=== PATIENT | male | born 1935 | race Caucasian/White ===

== ENCOUNTER → 2020-07-15 | Outpatient (CLI) | payer MEDICARE ==
--- NOTE | 2020-07-15 09:47 | REP ---
INDICATION: LEFT HIP PAIN. COMPARISON: None TECHNIQUE: Two views FINDINGS: There is moderate asymmetric hip joint space narrowing with mild buttressing. There is no acute fracture, dislocation, or subluxation. IMPRESSION: Chronic changes <Electronically signed by You Carroll > 07/15/20 [id number]
== END ==
LOC: M RAD 08:21
PROVIDERS: ATTEND Physician Assistant
DX: M25.552 Pain in left hip (principal)

== ENCOUNTER 2020-08-15 18:08 | Inpatient (IN) | payer MEDICARE ==
[~2020-08-15] VITALS: Ht 165.1 cm; Wt 84.0 kg
[2020-08-15] MEDS ORDERED: ISOVUE-370 76% 100ML VIAL As Ordered ONE (18:29)
--- NOTE | 2020-08-15 18:41 | REP ---
INDICATION: CVA. COMPARISON: No comparison chest x-ray. TECHNIQUE: Portable upright AP chest radiograph. FINDINGS: EKG electrodes are seen. The lungs are exposed at a relatively low level of inspiration. The heart appears enlarged. Aorta is tortuous. Pulmonary vasculature is cephalized. There is linear platelike atelectasis in the left base. Slight blunting of the left lateral pleural angle is suspected. No definite infiltrate. Old healed rib fractures noted on the right.. IMPRESSION: Slight blunting of the left lateral pleural angle suspected. Platelike atelectasis left base. Cardiomegaly. Relatively low level of overall inspiration.. <Electronically signed by Armando Schmid > 08/15/20 [id number]
[2020-08-15 18:45] LABS: BASO # 0.1 10^3/uL (0.0-0.2); BASO % 0.7 % (0.0-1.0); EOS # 0.4 10^3/uL (0.0-0.5); EOS % 4.3 % (0.0-3.0); HEMATOCRIT 45.3 % (42.0-52.0); HEMOGLOBIN 16.1 g/dl (13.5-17.5); LYMPH # 2.8 10^3/uL (1.5-5.0); LYMPH % 34.2 % (24.0-44.0); MEAN CORPUSCULAR HEMOGLOBIN 34.9 pg (27.0-33.0); MEAN CORPUSCULAR HGB CONC 35.5 g/dl (32.0-36.5); MEAN CORPUSCULAR VOLUME 98.3 fl (80.0-96.0); MONO % 11.4 % (2.0-8.0); NEUTROPHILS # 4.1 10^3/uL (1.5-8.5); NEUTROPHILS % 49.2 % (36.0-66.0); PLATELET COUNT, AUTOMATED 191 10^3/uL (150-450); RED BLOOD COUNT 4.61 10^6/uL (4.30-6.10); WHITE BLOOD COUNT 8.3 10^3/uL (4.0-10.0)
--- NOTE | 2020-08-15 19:00 | REPVR ---
PROCEDURE INFORMATION: Exam: CT Head Without Contrast Exam date and time: 08/15/2020 6:22 PM Age: 84 years old Clinical indication: Altered mental status/memory loss; Additional info: CVA - nursing interventions must not delay CT TECHNIQUE: Imaging protocol: Computed tomography of the head without contrast. Radiation optimization: All CT scans at this facility use at least one of these dose optimization techniques: automated exposure control; mA and/or kV adjustment per patient size (includes targeted exams where dose is matched to clinical indication); or iterative reconstruction. Other technique: STROKE PROTOCOL was implemented. COMPARISON: No relevant prior studies available. FINDINGS: Brain: No intracranial mass, focal mass effect or midline shift. No acute intracranial hemorrhage. Mild decreased attenuation in periventricular/centrum semiovale white matter. No focal effacement of cortical sulci to indicate acute cortical infarct. Prominent ventricles and CSF spaces suggest parenchymal volume loss. Paranasal sinuses: Visualized paranasal sinuses are unremarkable. Mastoid air cells: Mastoid air cells are normally aerated. Orbital cavity: Visualized globes and orbits are unremarkable. Bones/joints: No calvarial fracture or destructive process. Soft tissues: No focal extracranial soft tissue swelling. IMPRESSION: 1. No acute intracranial abnormality. 2. Atrophy and chronic microangiopathic change in supratentorial white matter. ASSESSMENT: ASPECTS ([place] Stroke Program Early CT Score) is 10. Electronically signed by: Serafin Muñoz On 08/15/2020 19:00:12 PM
[2020-08-15 19:01] LABS: INR 0.92; PROTHROMBIN TIME 12.6 SECONDS (12.5-14.3)
[2020-08-15 19:02] LABS: PARTIAL THROMBOPLASTIN TIME 27.2 SECONDS (24.2-38.5)
--- NOTE | 2020-08-15 19:08 | REPVR ---
PROCEDURE INFORMATION: Exam: CT Angiography Neck With Contrast Exam date and time: 08/15/2020 6:22 PM Age: 84 years old Clinical indication: Memory loss; Additional info: CVA - nursing interventions must not delay CT TECHNIQUE: Imaging protocol: Computed tomography angiography of the neck with contrast. 3D rendering (Not supervised by radiologist): MIP and/or 3D reconstructed images were created by the technologist. Radiation optimization: All CT scans at this facility use at least one of these dose optimization techniques: automated exposure control; mA and/or kV adjustment per patient size (includes targeted exams where dose is matched to clinical indication); or iterative reconstruction. Contrast material: ISOVUE 370; Contrast volume: 100 ml; Contrast route: INTRAVENOUS (IV); COMPARISON: SD PORTABLE CHEST X-RAY 08/15/2020 6:26 PM FINDINGS: Right common carotid, cervical ICA and proximal ECA demonstrate contrast opacification with no occlusion, flow limiting stenosis, or intimal flap to suggest dissection. Very mild right carotid bulb calcified atherosclerotic plaque with certainly milder than 50% luminal caliber stenosis Left common carotid, cervical ICA and proximal ECA demonstrate contrast opacification, with no occlusion, flow limiting stenosis, or intimal flap to suggest dissection. Mild left carotid bulb and proximal left ICA mixed composition plaque with certainly milder than 50% luminal caliber narrowing, over the short affected segment. Vertebral arteries demonstrate normal course to the level of the skull base and show no occlusion, flow limiting stenosis or dissection. No flow limiting stenosis or anomaly of the great vessel origins. No concerning asymmetric neck soft tissue abnormality. Multi-level cervical degenerative disc and articular pillar arthropathy is present. IMPRESSION: Bilateral carotid bulb and proximal ICA plaque with certainly milder than 50% short-segment luminal caliber stenosis bilaterally. No high-grade stenotic lesion. REFERENCES: NASCET CRITERIA. The degree of internal carotid artery stenosis is based on NASCET criteria. Normal is no stenosis. Mild is less than 50% stenosis. Moderate is 50-69% stenosis. Severe is 70% to 99% stenosis. Total occlusion is no detectable patent lumen. Electronically signed by: Serafin Muñoz On 08/15/2020 19:08:31 PM
--- NOTE | 2020-08-15 19:10 | REPVR ---
PROCEDURE INFORMATION: Exam: CT Angiography Head With Contrast, Arteriography Exam date and time: 08/15/2020 6:22 PM Age: 84 years old Clinical indication: Memory loss; Additional info: CVA - nursing interventions must not delay CT TECHNIQUE: Imaging protocol: Computed tomography angiography of the head with contrast. Exam focused on the arteries. 3D rendering (Not supervised by radiologist): MIP and/or 3D reconstructed images were created by the technologist. Radiation optimization: All CT scans at this facility use at least one of these dose optimization techniques: automated exposure control; mA and/or kV adjustment per patient size (includes targeted exams where dose is matched to clinical indication); or iterative reconstruction. Contrast material: ISOVUE 370; Contrast volume: 100 ml; Contrast route: INTRAVENOUS (IV); COMPARISON: No relevant prior studies available. FINDINGS: Ventricles, cisterns and sulci are symmetric and appropriate for age. No intracranial mass or focal mass effect. No intracranial hemorrhage, midline shift or acute territorial infarct. Mild decreased attenuation in periventricular/centrum semiovale white matter. Anterior circulation: Normal contrast opacification and luminal caliber in the petrous, cavernous and supraclinoid internal carotid arteries. Normal appearance of the anterior cerebral artery branches and middle cerebral artery branches through the MCA trifurcations. No occlusion, high-grade focal stenosis or dissection. No aneurysm. Posterior circulation: Distal vertebral arteries enhance normally to the vertebrobasilar junction. Normally enhancing, normal caliber basilar artery, and normal superior cerebellar and posterior cerebral arteries. No occlusion, high-grade stenosis or aneurysm. Dural sinuses enhance normally. Bony structures show no acute fracture or destructive process. IMPRESSION: Unremarkable CT Angiogram of the head and [place]. ASPECTS ([place] Stroke Program Early CT Score) is 10. Electronically signed by: Serafin Muñoz On 08/15/2020 19:09:56 PM
[2020-08-15 19:15] LABS: CK-MB VALUE MASS < 1.0 NG/ML (<3.6); CPK CREATINE PHOSPHOKINASE 131 U/L (39-308); MB/CK RELATIVE INDEX 0.76 (< OR =4); TROPONIN I < 0.02 NG/ML (< 0.10)
[2020-08-15] MEDS ORDERED: ZOLO100T PO (19:52)
[2020-08-15] MEDS ORDERED: LISI20TA20 PO (19:52)
--- NOTE | 2020-08-15 20:04 | HPEPDOC ---
[facility] Medical History & Physical Date of Admission Aug 15, 2020 Date of Service: Aug 15, 2020 Other Provider Micky RUEDA Attending Physician: REGGIE ESPINOSA MD History and Physical TIME OF SERVICE: 810PM CHIEF COMPLAINT: confusion HISTORY OF PRESENT ILLNESS: The history was obtained from the patients ; the patient was too confused to provide a complete history. At around 4PM this afternoon, while watching TV with his , suddenly stood up and begun pacing; when his asked him what was wrong, if he needed something or wanted to go somewhere his response was I dont know. While in the ER his CT head was neg; discussed the case with Tele-Neurologist and they decided that there was no indication for tPA. At the time of my evaluation the patient wanted to get up off the hospital bed and pace in the room. He was not aggressive, denied having any pain and also answered with I dont know when I asked him about the events leading to his arrival in the ER. REVIEW OF SYSTEMS: incomplete because the patient is confused. PAST MEDICAL/ SURGICAL HISTORY: essential HTN, chronic bilateral hand tremor (according to the patients he declined a work-up to determine the cause), anxiety, hearing loss, right partial second finger amputation SOCIAL HISTORY: he doesnt smoke or drink & lives with his / at his base line he can complete his ADLs and most IADLs on his own FAMILY HISTORY: reviewed with his , not relevant ALLERGIES: Please see below. HOME MEDICATIONS: Please see below. PHYSICAL EXAMINATION: Vital Signs Date Time Temp Pulse Resp B/P (MAP) Pulse Ox O2 Delivery O2 Flow Rate FiO2 08/15/20 18:08 96.6 106 20 180/104 (129) 93 Room Air GENERAL APPEARANCE: well nourished and developed / restless and anxious HEENT: EOMI / MM pink but slightly dry CARDIOVASCULAR: RRR/NMRG / no LE edema LUNGS: CTAB on RA ABDOMEN: contour convex MUSCULOSKELETAL: NCAT / ROMIx 4 / has mild kyphosis INTEGUMENT: has a rash on his back and left upper face NEUROLOGICAL: CN 2-12 except hearing intact / no nasal labial fold flattening / strength 5/5 in upper and lower extremities/ he has mask-like facies / doesnt swing his arms when he walks / has bilateral pill rolling hand tremors / he takes small steps when he walks / speech not dysarthric PSYCHIATRIC: A&O to person and place but not date/ he is able to understand and follow all commands/ he seems to have difficulties expressing himself beyond speaking a few short sentences LABORATORY DATA: POC Glucose (Misc Panel) 113H, POC Sodium (Misc Panel) 143, POC Potassium (Misc Panel) 4.2, POC Chloride (Misc Panel) 104, POC Total CO2 (Misc Panel) 26.0, POC Blood Urea Nitrogen (Misc Panel 22, POC Ionized Calcium (Misc Panel) 4.8, POC Creatinine (Misc Panel) 1.3, POC Hematocrit (Misc Panel) 45.0 Immature Granulocyte % (Auto) 0.2, Neutrophils (%) (Auto) 49.2, Lymphocytes (%) (Auto) 34.2, Monocytes (%) (Auto) 11.4H, Eosinophils (%) (Auto) 4.3H, Basophils (%) (Auto) 0.7, Neutrophils # (Auto) 4.1, Lymphocytes # (Auto) 2.8, Monocytes # (Auto) 1.0H, Eosinophils # (Auto) 0.4, Basophils # (Auto) 0.1, Nucleated Red Blood Cells % (auto) 0.0, Prothrombin Time 12.6, Prothromb Time International Ratio 0.92, Activated Partial Thromboplast Time 27.2, Total Creatine Kinase 131, Creatine Kinase MB < 1.0, Creatine Kinase MB Relative Index 0.76, Troponin I < 0.02 POC Prothrombin Time (Misc) 11.6L, POC INR (Misc) 1.0 IMAGING: Chest xray Slight blunting of the left lateral pleural angle suspected. Platelike atelectasis left base. Cardiomegaly. Relatively low level of overall inspiration. CT head 1. No acute intracranial abnormality. 2. Atrophy and chronic microangiopathic change in supratentorial white matter. CTA head Unremarkable CT Angiogram of the head and [place]. ASPECTS ([place] Stroke Program Early CT Score) is 10. CTA neck Bilateral carotid bulb and proximal ICA plaque with certainly milder than 50% short-segment luminal caliber stenosis bilaterally. No high-grade stenotic lesion. REFERENCES: NASCET CRITERIA. The degree of internal carotid artery stenosis is based on NASCET criteria. Normal is no stenosis. Mild is less than 50% stenosis. Moderate is 50-69% stenosis. Severe is 70% to 99% stenosis. Total occlusion is no detectable patent lumen. MICROBIOLOGY: respiratory panel neg EKG NSR rate of 88 ASSESSMENT: is an 84 yr old w essential HTN, chronic bilateral hand tremor of unclear cause, anxiety & hearing loss who is admitted for evaluation of sudden onset encephalopathy & HTN urgency. PLAN: 1 Encephalopathy Possible causes include hypertensive encephalopathy, drugs, hypercapnia, B12 or B1 deficiency, brain structure abnormality or a psychiatric disorder. An occult infection is unlikely because he has low qSOFA & SIRs scores A stroke is also possible because Plan: admit to medical floor / frequent Neurochecks / sitter / f/u ABG, B12, B1,UDS, ammonia, UA, blood cx, MRI brain / f/u Tele-Neurologist report (the patient's mentioned that the Tele-Neurologist would be sending a report over / if the initial work-up is negative the day time team may consider placing a Neurology consult 2 HTN Urgency Diagnosis based on the presence of SBP>180 and c/o headache (shortly after I examined him his reported that he developed a SUN) and the absence of signs of end organ damage His trop, EKG and Cr were unrevealing Plan: PO enalaprilat now with aim to lower BP by 25% w/in the first 2-4 hours with target BP of <160/100 within the next 2-6 hours and then cautiously to normal during the next 24-48hours / resume Lisinopril tomorrow and add low dose amlodipine / low salt diet / acetaminophen for SUN 3 Anxiety / Depression ? Plan: sertraline 4 Chronic bilateral pill rolling tremor Suspect he may have Parkinson or a Parkinson plus syndrome Plan: the day time team may consider a Neurology consult 5 Class 1 obesity Complicates care Plan: f/u A1C to screen for DM DVT px w TEDs (his [place]a Score = 2 points = pharmacological px not indicated) Dispo: home after at least 2 midnights stay / if he doesnt return to baseline he may need placement (his mentioned this, the day time team may consider placing a PFS consult after the work up has been completed LATE ENTRY 1133PM #Encephalopathy possibly due to hyperammonemia The hyperammonemia could be due to liver cirrhosis (90%), excessive alcohol consumption, small intestine bacterial overgrowth, congenital portosystemic shunts (can present in adulthood), OTC deficiency (an inborn error of metabolism which can present in adulthood) or urease positive UTI (proteus & E coli convert urea back to ammonia) Plan: Despite the normal AST, ALT, platelet count & Coags his FIB-4 index score is 2.35 points which indicates additional testing is needed before we can definitively r/o liver fibrosis therefore we will order a liver US & hepatitis panel, if these are equivocal the day time team may consider a GI consult/ the UA is pending / we will order a trail of lactulose to see if this helps with his confusion/ will not trend ammonia because the level of ammonia elevation doesnt always correlate with clinical symptoms Home Medications Scheduled Lisinopril/Hydrochlorothiazide (Lisinopril-Hctz 20-25 mg Tab) 1 Each Tablet, 1 TAB PO DAILY Sertraline Hcl (Zoloft) 100 Mg Tablet, 100 MG PO QHS Allergies Coded Allergies: No Known Allergies (Unverified , 08/15/20) A-FIB/CHADSVASC A-FIB History Current/History of A-Fib/PAF?: No Current PO Anticoag Therapy: No REGGIE ESPINOSA MD Aug 15, 2020 20:03
[2020-08-15] MEDS ORDERED: LORazepam 2 MG/ML VIAL IV STA (20:38)
--- NOTE | 2020-08-15 20:41 | ECGEPIP ---
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
[2020-08-15 20:52] LABS: RSV AMPLIFICATION NEGATIVE (NEGATIVE)
[2020-08-15] MEDS: SERTRALINE 100 MG TAB PO SCH (21:00)
[2020-08-15] MEDS ORDERED: RAMELTEON 8 MG TAB (ROZEREM) PO PRN (21:40)
[2020-08-15] MEDS ORDERED: ACETAMINOPHEN 650MG ER TAB (TYLENOL ARTHRITIS) PO SCH (22:00)
[2020-08-15 22:19] LABS: ACETAMINOPHEN LEVEL < 2.0 UG/ML (10.0-30.0); ALBUMIN 3.4 GM/DL (3.2-5.2); ALT/SGPT 30 U/L (12-78); BILIRUBIN,DIRECT 0.1 MG/DL (0.0-0.2); BILIRUBIN,TOTAL 0.7 MG/DL (0.2-1.0); ETHYL ALCOHOL (ETHANOL) < 0.003 % (0.000-0.010); SALICYLATE LEVEL < 1.7 MG/DL (5.0-30.0); TOTAL PROTEIN 6.8 GM/DL (6.4-8.2)
[2020-08-15] MEDS ORDERED: LACTULOSE 20 GM/30 ML SYRUP UD PO ONE (23:30)
[2020-08-15] MEDS ORDERED: ENALAPRIL MALEATE 5 MG TAB PO ONE (23:30)
[2020-08-16 00:59] VITALS: BP 172/99
[2020-08-16] MEDS ORDERED: NS 500 ML IV ONE (02:20)
[2020-08-16] MEDS ORDERED: NS 1,000 ML IV SCH (02:25)
--- NOTE | 2020-08-16 02:27 | IPNPDOC ---
Text Note Date of Service The patient was seen on 08/16/20. NOTE 225am Per d/w the patient's RN Margot the pt suddenly became tachycardic and still confused RR 30 / HR 175 to 250 / BP170/90 / rectal Temp 100.5 #SIRS Possiby due to occult infection vs anxiety Plan: EKG / lactic acid / 500ml bolus followed by maintenance IVF / repeat troponin / UDS, UA & blood cx are still pending / despite the absence of a source of infection we will start zosyn and vancomycin bc there is strong suspicion that he has an occult infection VS,Fishbone, I+O VS, Fishbone, I+O Laboratory Tests 08/15/20 18:29 Vital Signs Date Time Temp Pulse Resp B/P (MAP) Pulse Ox O2 Delivery O2 Flow Rate FiO2 08/16/20 01:47 172/99 08/16/20 00:45 94 93 Room Air 08/16/20 00:40 16 08/15/20 18:20 97.3 REGGIE ESPINOSA MD Aug 16, 2020 02:27
[2020-08-16] MEDS ORDERED: SODIUM CHLORIDE 0.9% 1000ML IV SCH ×2 (03:00→04:00)
[2020-08-16 03:04] LABS: HEMATOCRIT 41.8 % (42.0-52.0); HEMOGLOBIN 14.3 g/dl (13.5-17.5); MEAN CORPUSCULAR HEMOGLOBIN 32.7 pg (27.0-33.0); MEAN CORPUSCULAR HGB CONC 34.2 g/dl (32.0-36.5); MEAN CORPUSCULAR VOLUME 95.7 fl (80.0-96.0); PLATELET COUNT, AUTOMATED 167 10^3/uL (150-450); RED BLOOD COUNT 4.37 10^6/uL (4.30-6.10); WHITE BLOOD COUNT 10.3 10^3/uL (4.0-10.0)
[2020-08-16 03:28] LABS: ALBUMIN 3.7 GM/DL (3.2-5.2); ALT/SGPT 27 U/L (12-78); BILIRUBIN,TOTAL 0.7 MG/DL (0.2-1.0); BLOOD UREA NITROGEN 16 MG/DL (7-18); CALCIUM LEVEL 8.5 MG/DL (8.8-10.2); CARBON DIOXIDE LEVEL 26 MEQ/L (21-32); CHLORIDE LEVEL 107 MEQ/L (98-107); CREATININE FOR GFR 1.32 MG/DL (0.70-1.30); GLOMERULAR FILTRATION RATE 55.3 (>35); GLUCOSE, FASTING 150 MG/DL (70-100); POTASSIUM SERUM 3.9 MEQ/L (3.5-5.1); SODIUM LEVEL 139 MEQ/L (136-145); TOTAL PROTEIN 7.1 GM/DL (6.4-8.2)
[2020-08-16] MEDS ORDERED: VANCOMYCIN HCL 750 MG, VIAL MATE ADAPTER 1 EACH in NS 250 ML IV ONE ×2 (03:30→04:30)
[2020-08-16] MEDS ORDERED: ACETAMINOPHEN 650MG ER TAB (TYLENOL ARTHRITIS) PO PRN (03:50)
[2020-08-16] MEDS ORDERED: LORazepam 2 MG/ML VIAL IV STA (04:34)
[2020-08-16 06:00] VITALS: BP 158/66
[2020-08-16] MEDS ORDERED: LORazepam 1 MG TAB PO ONE ×2 (06:00→19:00)
[2020-08-16] MEDS ORDERED: PIPERACILLIN/TAZOBACTAM SOD 3.375 GM in D5W MINI-BAG PLUS 50 ML IV SCH (06:00)
[2020-08-16 06:31] VITALS: O2SAT 92
[2020-08-16 07:01] LABS: HEMATOCRIT 38.3 % (42.0-52.0); HEMOGLOBIN 12.8 g/dl (13.5-17.5); MEAN CORPUSCULAR HEMOGLOBIN 33.1 pg (27.0-33.0); MEAN CORPUSCULAR HGB CONC 33.4 g/dl (32.0-36.5); PLATELET COUNT, AUTOMATED 132 10^3/uL (150-450); RED BLOOD COUNT 3.87 10^6/uL (4.30-6.10); WHITE BLOOD COUNT 9.9 10^3/uL (4.0-10.0)
[2020-08-16 07:17] LABS: ALBUMIN 3.1 GM/DL (3.2-5.2); ALT/SGPT 22 U/L (12-78); BILIRUBIN,TOTAL 0.6 MG/DL (0.2-1.0); BLOOD UREA NITROGEN 13 MG/DL (7-18); CALCIUM LEVEL 7.8 MG/DL (8.8-10.2); CARBON DIOXIDE LEVEL 22 MEQ/L (21-32); CHLORIDE LEVEL 111 MEQ/L (98-107); CREATININE FOR GFR 1.04 MG/DL (0.70-1.30); GLOMERULAR FILTRATION RATE > 60.0 (>35); GLUCOSE, FASTING 105 MG/DL (70-100); SODIUM LEVEL 141 MEQ/L (136-145); TOTAL PROTEIN 6.1 GM/DL (6.4-8.2)
[2020-08-16] MEDS ORDERED: ENOXAPARIN 40MG/0.4ML SYRINGE (J1650 PER 10MG) SC SCH (09:00)
--- NOTE | 2020-08-16 09:59 | REP ---
INDICATION: confusion, elevated ammonia in pt w obesity. COMPARISON: None. TECHNIQUE: Real-time sonographic evaluation of right upper quadrant performed. Study is limited due to patient body habitus and inability to suspend respirations. FINDINGS: The gallbladder demonstrates no evidence of intraluminal sludge or calculi, wall thickening or pericholecystic fluid. There is no intrahepatic or extrahepatic biliary dilatation, common bile duct measures 6 mm in maximum diameter. There is somewhat increased heterogeneous echotexture of the liver suggesting some degree of fibrofatty infiltration. No gross liver masses seen. The pancreas is not seen due to overlying bowel gas. The right kidney demonstrates no hydronephrosis, with a normal size of 9.1 cm in length. There is a simple cyst in the lower pole of the right kidney 2.8 cm in diameter.No free fluid is seen. IMPRESSION: Fibrofatty infiltration of the liver with no gross mass. No free fluid. <Electronically signed by Arnel Bass > 08/16/20 0955
[2020-08-16] MEDS: LACTULOSE 20 GM/30 ML SYRUP UD PO SCH (10:14)
[2020-08-16] MEDS: HYDROCORTISONE 1% OINTMENT 30GM TOP SCH ×2 (10:19→20:20)
[2020-08-16 11:49] LABS: VITAMIN B12 LEVEL 385 PG/ML (247-911)
[2020-08-16 11:52] LABS: HEPATITIS B SURFACE ANTIGEN NEGATIVE (NEGATIVE)
[2020-08-16 12:19] LABS: HEPATITIS B CORE ANTIBODY IGM NEGATIVE (NEGATIVE); HEPATITIS C VIRUS ABY INDEX < 0.0 INDEX (<0.8)
[2020-08-16 12:22] LABS: HEPATITIS A ANTIBODY IGM NEGATIVE (NEGATIVE)
[2020-08-16 13:03] LABS: C REACTIVE PROTEIN QUANTITATIV 0.52 MG/DL (0.00-0.30); NT-PRO BNP 584 PG/ML (<450)
[2020-08-16 13:25] LABS: BASO % 0.4 % (0.0-1.0); EOS % 0.6 % (0.0-3.0); LYMPH # 2.8 10^3/uL (1.5-5.0); LYMPH % 27.4 % (24.0-44.0); MONO # 0.8 10^3/uL (0.0-0.8); MONO % 8.1 % (2.0-8.0); NEUTROPHILS # 6.5 10^3/uL (1.5-8.5); NEUTROPHILS % 63.1 % (36.0-66.0)
[2020-08-16 13:26] LABS: EOS # 0.1 10^3/uL (0.0-0.5)
[2020-08-16 14:00] VITALS: BP 145/87
[2020-08-16 14:07] LABS: ERYTHROCYTE SEDIMENTATION RATE 24 mm/hr (0-20)
[2020-08-16 14:08] LABS: PLATELET ESTIMATE NORMAL (NORMAL)
--- NOTE | 2020-08-16 14:28 | IPNPDOC ---
Date Seen The patient was seen on 08/16/20. Progress Note SUBJECTIVE: Hospital Day #1. Pt's is at bedside. She reports that the pt still appears confused to her. She states that his bilateral pill-rolling tremors are at baseline. Nursing staff does not report any overnight events since admission. OBJECTIVE PHYSICAL EXAMINATION: VITAL SIGNS: Please see below. GENERAL: Patient appears in no acute distress, is lying back in bed and able to maintain his own airway, he is currently not on any oxygen therapy HEENT:. Normocephalic, atraumatic. Nares patent. Oropharyngeal mucosa moist CARDIOVASCULAR: Diminished heart sounds secondary to body habitus. RESPIRATORY: Diminished breath sounds secondary to decreased respiratory effort. ABDOMINAL: Soft, nontender, nondistended, bowel sounds present EXTREMITIES:. No edema, cyanosis appreciated NEUROLOGICAL: bilateral pill-rolling tremors, unable to follow neurological exam commands. PSYCHOLOGICAL: Flat affect, Parkinsonian facies LABORATORY DATA, IMAGING STUDIES, MICROBIOLOGY: Please see below. DVT prophylaxis ordered: TEDs and sequentials. ASSESSMENT AND PLAN: Patient is an 84-year-old male with a past medical history of chronic bilateral pill-rolling tremors, who presents due to confusion and restlessness. #Encephalopathy. Patient has a chronic bilateral pill-rolling tremor, likely indicative of early manifestation of Parkinsonian disease. Patient does not take any medications at home for Parkinson's disease. MRI brain has been ordered to rule out stroke. Continue to monitor BMP. Continue to monitor CBC. Continue strict I's and O's #Tachycardia, resolved. 19 had started Zosyn and vancomycin, which has now been discontinued. No leukocytosis at this time Pro calcitonin is less than 0.05. CRP is 0.52, consider trending if patient develops any signs of infection. #Hypertensive urgency. Continue amlodipine 2.5 mg daily Continue lisinopril 20 mg daily Continue hydrochlorothiazide 25 mg daily #Abnormal chest x-ray Patient's admitting chest x-ray showed small little left lateral pleural effusion with platelike atelectasis, therefore, discontinued IV fluids BNP is 584 Repeat chest x-ray on day of discharge Anxiety/depression. Continue home medication 100 mg every night DISPOSITION: Pending MRI brain, consider neurology referral upon discharge if no stroke found. VS, I&O, 24H, Fishbone Vital Signs/I&O Vital Signs Date Time Temp Pulse Resp B/P (MAP) Pulse Ox O2 Delivery O2 Flow Rate FiO2 08/16/20 10:17 143/91 08/16/20 06:31 92 Room Air 08/16/20 06:00 97.0 81 20 I&O- Last 24 Hours up to 6 AM 08/16/20 06:00 Intake Total 845 ml Output Total 50 ml Balance 795 ml Laboratory Data 24H LABS Laboratory Tests 2 08/15/20 18:26: POC Glucose (Misc Panel) 113H, POC Sodium (Misc Panel) 143, POC Potassium (Misc Panel) 4.2, POC Chloride (Misc Panel) 104, POC Total CO2 (Misc Panel) 26.0, POC Blood Urea Nitrogen (Misc Panel 22, POC Ionized Calcium (Misc Panel) 4.8, POC Creatinine (Misc Panel) 1.3, POC Hematocrit (Misc Panel) 45.0 08/15/20 18:29: Immature Granulocyte % (Auto) 0.2, Neutrophils (%) (Auto) 49.2, Lymphocytes (%) (Auto) 34.2, Monocytes (%) (Auto) 11.4H, Eosinophils (%) (Auto) 4.3H, Basophils (%) (Auto) 0.7, Neutrophils # (Auto) 4.1, Lymphocytes # (Auto) 2.8, Monocytes # (Auto) 1.0H, Eosinophils # (Auto) 0.4, Basophils # (Auto) 0.1, Nucleated Red Blood Cells % (auto) 0.0, Prothrombin Time 12.6, Prothromb Time International Ratio 0.92, Activated Partial Thromboplast Time 27.2, Total Creatine Kinase 131, Creatine Kinase MB < 1.0, Creatine Kinase MB Relative Index 0.76, Troponin I < 0.02 08/15/20 18:50: POC Prothrombin Time (Misc) 11.6L, POC INR (Misc) 1.0 08/15/20 19:45: Coronavirus (COVID-19)(PCR) NEGATIVE, Influenza Type A (RT-PCR) NEGATIVE, Influenza Type B (RT-PCR) NEGATIVE, Respiratory Syncytial Virus (PCR) NEGATIVE 08/15/20 21:31: Lactic Acid Level 1.0, Total Bilirubin 0.7, Direct Bilirubin 0.1, Aspartate Amino Transf (AST/SGOT) 30, Alanine Aminotransferase (ALT/SGPT) 30, Alkaline Phosphatase 130H, Ammonia 40H, Total Protein 6.8, Albumin 3.4, Albumin/Globulin Ratio 1.0, Thyroid Stimulating Hormone (TSH) 2.060, Salicylates Level < 1.7L, Acetaminophen Level < 2.0L, Ethyl Alcohol Level < 0.003 08/16/20 02:46: Lactic Acid Level 1.5, Total Bilirubin 0.7, Aspartate Amino Transf (AST/SGOT) 26, Alanine Aminotransferase (ALT/SGPT) 27, Alkaline Phosphatase 118H, Total Protein 7.1, Albumin 3.7, Albumin/Globulin Ratio 1.1, Nucleated Red Blood Cells % (auto) 0.0, Anion Gap 6L, Glomerular Filtration Rate 55.3, Calcium Level 8.5L 08/16/20 02:51: Urine Color YELLOW, Urine Appearance CLEAR, Urine pH 5.0, Urine Specific [place] 1.040, Urine Protein NEGATIVE, Urine Glucose (UA) 3+H, Urine Ketones NEGATIVE, Urine Blood 1+H, Urine Nitrite NEGATIVE, Urine Bilirubin NEGATIVE, Urine Urobilinogen 0.2, Urine Leukocyte Esterase NEGATIVE, Urine WBC (Auto) 1, Urine RBC (Auto) 2, Urine Hyaline Casts (Auto) 0, Urine Bacteria (Auto) NEGATIVE, Urine Squamous Epithelial Cells 0, Urine Mucus (Auto) SMALL, Urine Sperm (Auto) 08/16/20 06:44: Total Bilirubin 0.6, Aspartate Amino Transf (AST/SGOT) 23, Alanine Aminotr ansferase (ALT/SGPT) 22, Alkaline Phosphatase 100, Total Protein 6.1L, Albumin 3.1L, Albumin/Globulin Ratio 1.0, Nucleated Red Blood Cells % (auto) 0.0, Anion Gap 8, Glomerular Filtration Rate > 60.0, Calcium Level 7.8L 08/16/20 06:45: 08/16/20 07:05: Methicillin-Resist S.aureus DNA PCR NOT DETECTED CBC/BMP Laboratory Tests 08/15/20 18:29 08/16/20 02:46 08/16/20 06:44 Microbiology Microbiology 08/16/20 Blood Culture, Received Pending GME ATTESTATION GME ATTESTATION My faculty preceptor for this patient encounter was physically present during the encounter and was fully available. All aspects of the patient interview, examination, medical decision making process, and medical care plan development were reviewed and approved by the faculty preceptor. The faculty preceptor is aware and concurs with the plan as stated in the body of this note and will attest to such by his/her cosignature. ATTENDING NOTE I personally examined the patient, went over his physical findings, labs and plan with the resident team and agree with the recommendations above. His m entation is much improved, agitation resolved, and speech clear with appropriate responses. He has a baseline tremor but otherwise nonfocal in rest of neurological examination, and at this time, is pending an MRI for likely TIA. Guillermo Marrero DO Aug 16, 2020 11:46 ONUR BASILIO MD Aug 16, 2020 16:15
[2020-08-16] MEDS: SERTRALINE 100 MG TAB PO SCH (20:19)
[2020-08-16 22:00] VITALS: BP 140/83
--- NOTE | 2020-08-16 22:08 | REPVR ---
PROCEDURE INFORMATION: Exam: MR Head Without Contrast Exam date and time: 08/16/2020 9:16 PM Age: 84 years old Clinical indication: Altered mental status/memory loss; Confusion or disorientation; Additional info: Sudden onset confusion /history of bilateral hand tremors TECHNIQUE: Imaging protocol: MR of the head without contrast. COMPARISON: 1. CT Head without contrast 08/15/2020 6:[address] ANGIO HEAD 08/15/2020 6:31 PM FINDINGS: Brain: Nonspecific T2/FLAIR hyperintensities of the periventricular and deep subcortical white matter, most likely secondary to chronic small vessel ischemic change. No intracranial hemorrhage or extra-axial fluid collection. No evidence of mass effect or midline shift. No restricted diffusion to suggest acute infarct. Cerebral ventricles: Prominence of the ventricles and sulci, likely attributed to parenchymal volume loss. Bones/joints: Unremarkable. Paranasal sinuses: Normal as visualized. No acute sinusitis. Mastoid air cells: No mastoid effusion. Orbital cavity: Unremarkable. Soft tissues: Unremarkable. IMPRESSION: 1. No acute intracranial pathology. 2. Chronic findings, as above. Electronically signed by: Dave Negrete On 08/16/2020 22:08:12 PM
--- NOTE | 2020-08-16 23:31 | ECGEPIP ---
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 Increased heart rate compared with 08/15/2020. Electronically Signed on 08-16-2020 23:31:38 EDT by John Sheehan
[2020-08-17] MEDS ORDERED: VANCOMYCIN HCL 1,000 MG, VIAL MATE ADAPTER 1 EACH in NS 250 ML IV SCH (01:00)
[2020-08-17 06:00] VITALS: BP 135/81
[2020-08-17 06:33] LABS: BASO % 0.5 % (0.0-1.0); EOS # 0.5 10^3/uL (0.0-0.5); HEMATOCRIT 40.3 % (42.0-52.0); HEMOGLOBIN 13.3 g/dl (13.5-17.5); LYMPH # 2.7 10^3/uL (1.5-5.0); LYMPH % 35.4 % (24.0-44.0); MEAN CORPUSCULAR HEMOGLOBIN 32.2 pg (27.0-33.0); MEAN CORPUSCULAR VOLUME 97.6 fl (80.0-96.0); MONO % 13.2 % (2.0-8.0); NEUTROPHILS # 3.4 10^3/uL (1.5-8.5); NEUTROPHILS % 44.6 % (36.0-66.0); PLATELET COUNT, AUTOMATED 146 10^3/uL (150-450); RED BLOOD COUNT 4.13 10^6/uL (4.30-6.10); WHITE BLOOD COUNT 7.7 10^3/uL (4.0-10.0)
[2020-08-17 06:52] LABS: BLOOD UREA NITROGEN 10 MG/DL (7-18); CALCIUM LEVEL 8.6 MG/DL (8.8-10.2); CARBON DIOXIDE LEVEL 28 MEQ/L (21-32); CHLORIDE LEVEL 108 MEQ/L (98-107); CREATININE FOR GFR 1.05 MG/DL (0.70-1.30); GLOMERULAR FILTRATION RATE > 60.0 (>35); GLUCOSE, FASTING 87 MG/DL (70-100); SODIUM LEVEL 141 MEQ/L (136-145)
[2020-08-17 09:00] VITALS: BP 135/81
[2020-08-17] MEDS: LACTULOSE 20 GM/30 ML SYRUP UD PO SCH (09:01)
[2020-08-17] MEDS: HYDROCORTISONE 1% OINTMENT 30GM TOP SCH (09:03)
[2020-08-17] MEDS ORDERED: ASPI81CH33 PO (11:38)
--- NOTE | 2020-08-17 20:12 | DS.PDOC ---
Discharge Summary General Date of Admission Aug 15, 2020 at 20:01 Date of Discharge 08/17/2020 Attending Physician: ONUR BASILIO MD Discharge Summary PROCEDURES PERFORMED DURING STAY: None. ADMITTING DIAGNOSES: Stroke Essential hypertension Chronic bilateral hand tremor (according to patient's patient declined a work-up) Anxiety Hearing loss Right partial second finger amputation DISCHARGE DIAGNOSES: TIA Essential hypertension Chronic bilateral hand tremor (according to patient's patient declined a work-up) Anxiety Hearing loss Right partial second finger amputation COMPLICATIONS/CHIEF COMPLAINT: Encephalopathy. HISTORY OF PRESENT ILLNESS: The history was obtained from the patients ; the patient was too confused to provide a complete history. At around 4PM this afternoon, while watching TV with his , suddenly stood up and begun pacing; when his asked him what was wrong, if he needed something or wanted to go somewhere his response was I dont know. While in the ER his CT head was neg; discussed the case with Tele-Neurologist and they decided that there was no indication for tPA. At the time of my evaluation the patient wanted to get up off the hospital bed and pace in the room. He was not aggressive, denied having any pain and also answered with I dont know when I asked him about the events leading to his arrival in the ER. HOSPITAL COURSE: Patient was given enalapril p.o. with the aim to lower blood pressure by 25% within the first 2 to 4 hours and then target a blood pressure of less than 160/100 within the next 2 to 6 hours. Patient received 2.1 L normal saline and was started on Zosyn and vancomycin because he had an episode of tachycardia. He received 1 dose of each before these were discontinued due to decreased suspicion of infection. Patient was started on his home medications for his high blood pressure he was given lisinopril 20 mg p.o., hydrochlorothiazide 25 mg p.o. and amlodipine 2.5 mg p.o. Patient was given lactulose 15 mL due to possible encephalopathy since on admission patient's ammonia level was 40. Patient had hypertensive urgency on admission with systolic blood pressure more than 180 and he complained of a headache with confusion. Patient was given 0.5 mg IV lorazepam due to brain MRI procedure being ordered. Liver ultrasound was done due to increased ammonia level. Patient BNP was 584 and CRP was 0.52. Patient did not have any fevers chills or night sweats throughout his hospital stay. Patient's neurologic state improved significantly overnight without anticoagulation. DVT prophylaxis was Teds and sequentials. Physical therapy saw the patient at the hospital and determined that outpatient physical therapy services would be helpful. Given the patient's tremor that was at baseline patient requires outpatient nephrology referral. Due to mild platelike atelectasis found and pleural effusion likely secondary to fluid overload, incentive spirometry was completed during hospital stay. Pt's home medication for anxiety, 100 mg sertraline was administered during entire stay. DISCHARGE MEDICATIONS: Please see below. ALLERGIES: Please see below. PHYSICAL EXAMINATION ON DISCHARGE: VITAL SIGNS: Please see below. GENERAL: In no acute distress sitting upright in bedside chair. HEENT: Normocephalic, atraumatic, no scleral icterus, EOMI, oropharyngeal mucosa moist, nares patent CARDIOVASCULAR EXAMINATION: Regular rate and rhythm, no murmurs rubs or gallops RESPIRATORY EXAMINATION: Clear to auscultation bilaterally no wheezes rales or rhonchi ABDOMINAL EXAMINATION: Soft, nontender, nondistended, bowel sounds EXTREMITIES: No clubbing, cyanosis, or edema appreciated in upper or lower extremities, partial amputation of second finger of right hand, radial pulses and pedal pulses equal and bounding NEUROLOGICAL EXAMINATION: Cranial nerves III to XII intact, upper and lower extremity strength plus 4 out of 5, negative [id number] test, tremor present during [id number] test PSYCHIATRIC EXAMINATION: Affect full and open LABORATORY DATA: Please see below. IMAGING: Chest x-ray, 08/15/2020 Slight blunting of the left lateral pleural angle suspected. Platelike atelectasis left base. Cardiomegaly. Relatively low level of overall inspiration. CT angiography, 08/15/[address] Angiogram of the head and bois forte of [place]. ASPECTS ([place] Stroke Program Early CT Score) is 10. Head CT 08/15/2020 IMPRESSION: 1. No acute intracranial abnormality. 2. Atrophy and chronic microangiopathic change in supratentorial white matter. ASSESSMENT: ASPECTS ([place] Stroke Program Early CT Score) is 10. Neck CTA 08/15/2020 Bilateral carotid bulb and proximal ICA plaque with certainly milder than 50% short-segment luminal caliber stenosis bilaterally. No high-grade stenotic lesion. REFERENCES: NASCET CRITERIA. The degree of internal carotid artery stenosis is based on NASCET criteria. Normal is no stenosis. Mild is less than 50% stenosis. Moderate is 50-69% stenosis. Severe is 70% to 99% stenosis. Total occlusion is no detectable patent lumen. Brain MRI, 08/16/2020 IMPRESSION: 1. No acute intracranial pathology. 2. Chronic findings, as above. Liver ultrasound 08/16/2020 IMPRESSION: Fibrofatty infiltration of the liver with no gross mass. No free fluid. PROGNOSIS: Fair considering patient will follow up appropriately with neurology referral and appropriate cardiac work-up with PCP. ACTIVITY: As tolerated. DIET: 2 g sodium diet DISCHARGE INSTRUCTIONS: Please follow-up with PCP within the next 3 to 5 days Please follow-up with neurology within the next 3 to 5 days Please continue home medications Please start aspirin 81 mg daily Please feel free to present back for immediate medical care in case of worsening symptoms and or persistence of worrying symptoms DISCHARGE CONDITION: Stable. TIME SPENT ON DISCHARGE: 37 minutes. Vital Signs/I&Os Vital Signs Date Time Temp Pulse Resp B/P (MAP) Pulse Ox O2 Delivery O2 Flow Rate FiO2 08/17/20 09:00 135/81 08/17/20 08:59 71 08/17/20 06:00 97.1 20 95 Room Air I&O- Last 24 Hours up to 6 AM 08/17/20 06:00 Intake Total 1260 ml Output Total 2200 ml Balance -940 ml Laboratory Data Labs 24H Laboratory Tests 2 08/17/20 05:42: Immature Granulocyte % (Auto) 0.3, Neutrophils (%) (Auto) 44.6, Lymphocytes (%) (Auto) 35.4, Monocytes (%) (Auto) 13.2H, Eosinophils (%) (Auto) 6.0H, Basophils (%) (Auto) 0.5, Neutrophils # (Auto) 3.4, Lymphocytes # (Auto) 2.7, Monocytes # (Auto) 1.0H, Eosinophils # (Auto) 0.5, Basophils # (Auto) 0.0, Nucleated Red Blood Cells % (auto) 0.0, Anion Gap 5L, Glomerular Filtration Rate > 60.0, Calcium Level 8.6L CBC/BMP Laboratory Tests 08/17/20 05:42 Microbiology Microbiology 6/22/21 Blood Culture - Preliminary, Resulted No growth after 24 hours . All specim... Discharge Medications Scheduled Aspirin (Aspirin) 81 Mg Tab.chew, 1 TAB PO DAILY for pain Lisinopril/Hydrochlorothiazide (Lisinopril-Hctz 20-25 mg Tab) 1 Each Tablet, 1 TAB PO DAILY, (Reported) Sertraline Hcl (Zoloft) 100 Mg Tablet, 100 MG PO QHS, (Reported) Allergies Coded Allergies: No Known Allergies (Unverified , 08/15/20) GME ATTESTATION GME ATTESTATION My faculty preceptor for this patient encounter was physically present during the encounter and was fully available. All aspects of the patient interview, examination, medical decision making process, and medical care plan development were reviewed and approved by the faculty preceptor. The faculty preceptor is aware and concurs with the plan as stated in the body of this note and will attest to such by his/her cosignature. ATTENDING NOTE I personally examined the patient and agree with the findings and plan as detailed in the resident physician note above. Guillermo Marrero DO Aug 17, 2020 20:12 ONUR BASILIO MD Aug 18, 2020 07:41
== END 2020-08-17 13:10 | disposition home or self-care (01) | DRG 305 ==
LOC: M ED 18:08 → M ED INP 20:01 → ENRESERV 08-16 00:08 → M MSPAV 08-16 00:59
PROVIDERS: ADMIT Internal Medicine; ATTEND Internal Medicine
DX: I16.0 Hypertensive urgency (principal); I67.4 Hypertensive encephalopathy; G45.9 Transient cerebral ischemic attack, unspecified; G20 Parkinson's disease; F41.9 Anxiety disorder, unspecified; Z79.82 Long term (current) use of aspirin; Z79.899 Other long term (current) drug therapy; I10 Essential (primary) hypertension

== ENCOUNTER → 2022-04-03 | Outpatient (CLI) | payer MEDICARE ==
[~2022-04-03] MED LIST: ASPI81CH33 PO; BARIUM SULFATE 700 MG TABLET (E-Z-DISK) As Ordered ONE; E-Z-HD 98% w/w 340GM SUSP BTL As Ordered ONE; E-Z-PAQUE 96% w/w SUSP 176GM BTL As Ordered ONE; LISI20TA37 PO; VARIBAR NECTAR 40% w/v 240ML SUSP BTL As Ordered ONE; VARIBAR PUDDING 40% w/v 230ML TUBE As Ordered ONE; ZOLO100T PO
== END ==
LOC: M RAD 11:50
PROVIDERS: ATTEND Otolaryngology
DX: G20 Parkinson's disease (principal); R63.4 Abnormal weight loss; R13.10 Dysphagia, unspecified; K21.9 Gastro-esophageal reflux disease without esophagitis